=== PATIENT | male | born 1955 | race Two or more races ===

== ENCOUNTER 2022-08-08 17:05 | Emergency (ER) | payer OTHER ==
[~2022-08-08] VITALS: Ht 165.1 cm; Wt 64.0 kg
[2022-08-08 18:00] LABS: EOSINOPHILS % 2.5 % (0.0-5.0); HEMATOCRIT. 31.8 % (42.0-52.0); HEMOGLOBIN. 10.2 g/dL (14.0-18.0); LYMPHOCYTES % 28.7 % (20.0-50.0); MEAN CORPUSCULAR HEMOGLOBIN 25.6 pg (28.0-32.0); MEAN CORPUSCULAR VOLUME 80.1 fL (80.0-94.0); MEAN PLATELET VOLUME 9.2 fl (7.4-10.4); MONOCYTES % 7.4 % (2.0-8.0); NEUTROPHILS % 60.4 % (40.0-76.0); PLATELET 140 x1000/uL (130-400); RED BLOOD CELL COUNT 3.97 mill/uL (4.7-6.1); RED CELL DISTRIBUTION WIDTH 20.5 % (11.6-14.6)
[2022-08-08 18:06] LABS: CHLORIDE 108 mEq/L (98-107)
[2022-08-08 18:13] LABS: ETHANOL BLOOD < 10 mg/dL
[2022-08-08] MEDS ORDERED: LEVETIRACETAM 500MG TABLET PO NR (18:30)
[2022-08-08] MEDS ORDERED: ACETAMINOPHEN 325MG TABLET PO ONE (19:00)
[2022-08-08] MEDS ORDERED: LIDO700A15 TP (19:12)
[2022-08-08] MEDS ORDERED: ACET-2708 MT (19:12)
[2022-08-08 19:43] VITALS: BP 162/59
== END 2022-08-08 20:40 | disposition home or self-care (01) ==
LOC: ER 17:10
DX: R56.9 Unspecified convulsions (principal); N18.6 End stage renal disease; I12.0 Hypertensive chronic kidney disease with stage 5 chronic kidney disease or end stage renal disease; Z99.2 Dependence on renal dialysis; Z86.73 Personal history of transient ischemic attack (TIA), and cerebral infarction without residual deficits
CPT/HCPCS: 36415; 71045; 80053; 80320; 85025; 99284; Z7610; G0480